=== PATIENT | male | born 1955 | race Caucasian/White ===

== ENCOUNTER 2021-09-18 18:37 | Inpatient (IN) | payer MEDICAID ==
[~2021-09-18] VITALS: Ht 172.7 cm; Wt 82.7 kg
[2021-09-18] MEDS ORDERED: METHYLPREDNISOLONE SOD SUCC 125 MG/2 ML VIAL IV STA (19:00)
[2021-09-18] MEDS ORDERED: VANCOMYCIN 1G PREMIX 200 ML IV ONE (19:00)
[2021-09-18] MEDS ORDERED: SODIUM CHLORIDE 0.9% 1000ML BAG (SEPSIS BOLUS) IV ONE (19:00)
[2021-09-18] MEDS ORDERED: IPRATROPIUM BROMIDE (0.02%) 0.5MG/2.5ML NEB HHN STA (19:00)
[2021-09-18] MEDS ORDERED: PIPERACILLIN/TAZ 3.375G PREMIX 50 ML IV ONE (19:00)
[2021-09-18] MEDS ORDERED: MAGNESIUM 2 G PREMIX 50 ML IV STA (19:00)
[2021-09-18] MEDS ORDERED: ALBUTEROL (0.083%) 2.5MG/3ML NEB HHN STA (19:00)
[2021-09-18] MEDS ORDERED: ACETAMINOPHEN 650MG SUPP PR ONE (19:45)
[2021-09-18 19:47] LABS: HEMATOCRIT. 51.9 % (42.0-52.0); HEMOGLOBIN. 17.3 g/dL (14.0-18.0); MEAN CORPUSCULAR HEMOGLOBIN 30.2 pg (28.0-32.0); MEAN CORPUSCULAR VOLUME 90.4 fL (80.0-94.0); MEAN PLATELET VOLUME 8.1 fl (7.4-10.4); PLATELET 170 x1000/uL (130-400); RED BLOOD CELL COUNT 5.75 mill/uL (4.7-6.1); RED CELL DISTRIBUTION WIDTH 13.3 % (11.6-14.6)
[2021-09-18 19:49] LABS: CHLORIDE 98 mEq/L (98-107)
[2021-09-18 19:50] LABS: INR 1.1; PROTHROMBIN TIME 11.4 sec (9.6-11.0)
[2021-09-18 20:11] LABS: PLATELET ESTIMATE NORMAL
[2021-09-19] MEDS ORDERED: TRAMADOL 50MG TABLET PO PRN
[2021-09-19] MEDS ORDERED: MAGNESIUM/ALUMINUM HYDROXIDE/SIMETHICONE 30ML UDC PO PRN
[2021-09-19] MEDS ORDERED: GUAIFENESIN 200MG/10ML SUGAR FREE UDC PO PRN
[2021-09-19] MEDS ORDERED: CEFTRIAXONE 1 G PREMIX 50 ML IV NR
[2021-09-19] MEDS ORDERED: HYDROCODONE/ACETAMINOPHEN 5/325MG TABLET PO PRN
[2021-09-19] MEDS ORDERED: IPRATROPIUM/ALBUTEROL 0.5-3(2.5)MG/3ML NEB HHN PRN
[2021-09-19] MEDS ORDERED: AZITHROMYCIN 500MG/250ML 250 ML IV NR
[2021-09-19] MEDS ORDERED: DOCUSATE SODIUM 100MG CAPSULE PO PRN
[2021-09-19] MEDS ORDERED: ONDANSETRON HCL 4MG/2ML INJ IV PRN
[2021-09-19] MEDS ORDERED: ACETAMINOPHEN 325MG TABLET PO PRN
[2021-09-19 00:27] LABS: CLARITY URINE CLEAR (CLEAR); COLOR URINE YELLOW (YELLOW); KETONES URINE TRACE (NEGATIVE); LEUKOCYTE ESTERASE URINE NEGATIVE (NEGATIVE); NITRITE URINE NEGATIVE (NEGATIVE); OCCULT BLOOD URINE NEGATIVE (NEGATIVE); PROTEIN URINE NEGATIVE (NEGATIVE); SPECIFIC GRAVITY URINE 1.018 (1.005-1.030)
[2021-09-19 00:45] LABS: BG BASE EXCESS -3.5 mmol/L (-2.0-2.0); BG CARBOXYHEMOGLOBIN 0.4 % (0.5-1.5); BG DEOXYHEMOGLOBIN 3.6 % (0.0-5.0); BG FRACTION INSPIRED OXYGEN 44; BG HCO3 ACT 19.7 mmol/L (22.0-26.0); BG OXYGEN SATURATION 96.4 % (92.0-98.5); BG PCO2 31.4 mmHg (35.0-45.0); BG PH 7.415 (7.350-7.450); BG PO2 85.9 mmHg (75.0-100.0); BG SAMPLE SITE LEFT RADIAL; BG VENT MODE NASAL CANNULA
[2021-09-19] MEDS: SODIUM CHLORIDE 0.9% 1,000 ML IV SCH ×2 (00:55→17:18)
[2021-09-19 05:21] LABS: HEMATOCRIT. 47.4 % (42.0-52.0); HEMOGLOBIN. 15.8 g/dL (14.0-18.0); MEAN CORPUSCULAR HEMOGLOBIN 30.2 pg (28.0-32.0); MEAN CORPUSCULAR VOLUME 90.8 fL (80.0-94.0); MEAN PLATELET VOLUME 7.7 fl (7.4-10.4); PLATELET 116 x1000/uL (130-400); RED BLOOD CELL COUNT 5.22 mill/uL (4.7-6.1); RED CELL DISTRIBUTION WIDTH 13.3 % (11.6-14.6)
[2021-09-19] MEDS: METHYLPREDNISOLONE SOD SUCC 125 MG/2 ML VIAL IV SCH ×4 (05:38→23:36)
[2021-09-19 05:41] LABS: CHLORIDE 104 mEq/L (98-107)
[2021-09-19 05:49] LABS: HDL CHOLESTEROL 46 mg/dL (40-59); LDL CHOLESTEROL 69 mg/dL (5-100)
[2021-09-19 06:37] VITALS: BP 132/87
[2021-09-19] MEDS ORDERED: DEXTROSE 50% WATER 50ML SYRINGE IV PRN (06:45)
[2021-09-19] MEDS ORDERED: FOLI-43 PO (06:58)
[2021-09-19] MEDS ORDERED: VALP250C3 PO (06:58)
[2021-09-19] MEDS ORDERED: LEVE500T19 PO (06:58)
[2021-09-19] MEDS ORDERED: PANT40TA51 PO (06:58)
[2021-09-19] MEDS ORDERED: RISP1TAB97 PO (06:58)
[2021-09-19] MEDS ORDERED: LORA2DIS6 IM (06:58)
[2021-09-19] MEDS ORDERED: METO25TA6 PO (06:58)
[2021-09-19] MEDS: INSULIN LISPRO 100 UNITS/ML SUBCUT SCH ×3 (06:59→12:33)
[2021-09-19] MEDS ORDERED: NALOXONE HCL 0.4MG/ML VIAL IV PRN (07:45)
[2021-09-19 08:00] VITALS: BP 99/74
[2021-09-19] MEDS: ENOXAPARIN 40MG/0.4ML SYR SUBCUT SCH (08:46)
[2021-09-19] MEDS: AMLODIPINE 10MG TABLET PO SCH (08:47)
[2021-09-19 11:25] LABS: PLATELET ESTIMATE DECREASED
[2021-09-19] MEDS ORDERED: BLOOD SUGAR DIAGNOSTIC STRIP TEST SCH (11:30)
[2021-09-19 12:00] VITALS: BP 103/76
[2021-09-19] MEDS ORDERED: MEDICATION NOT ON FORMULARY EA (Lorazepam 2 MG) IM SCH (14:45)
[2021-09-19 15:01] VITALS: BP 103/76
[2021-09-19 16:00] VITALS: BP 111/78
[2021-09-19] MEDS: VALPROIC ACID 250MG CAPSULE PO SCH (17:18)
[2021-09-19] MEDS: FOLIC ACID 1MG TABLET PO SCH (17:18)
[2021-09-19] MEDS: RISPERIDONE 1MG TABLET PO SCH (17:18)
[2021-09-19] MEDS: LEVETIRACETAM 500MG TABLET PO SCH (17:18)
[2021-09-19 20:00] VITALS: BP 126/80
[2021-09-19] MEDS: PANTOPRAZOLE 40MG DR TABLET PO SCH (20:26)
[2021-09-19] MEDS: CEFTRIAXONE 1,000 MG in DEXTROSE 5% WATER 50 ML IV SCH (23:03)
[2021-09-19] MEDS: AZITHROMYCIN 500MG in DEXTROSE 5% WATER 250ML IV SCH (23:36)
[2021-09-20] VITALS: BP 103/60
[2021-09-20 04:00] VITALS: BP 98/64
[2021-09-20] MEDS: METHYLPREDNISOLONE SOD SUCC 125 MG/2 ML VIAL IV SCH ×3 (05:45→16:15)
[2021-09-20 08:00] VITALS: BP 126/81
[2021-09-20 08:20] LABS: HEMATOCRIT 39.7 % (42.0-52.0); HEMOGLOBIN 13.6 g/dL (14.0-18.0); MEAN CORPUSCULAR HEMOGLOBIN 30.6 pg (28.0-32.0); MEAN CORPUSCULAR VOLUME 89.7 fL (80.0-94.0); PLATELET 138 x1000/uL (130-400); RED BLOOD CELL COUNT 4.43 mill/uL (4.7-6.1); RED CELL DISTRIBUTION WIDTH 13.4 % (11.6-14.6)
[2021-09-20] MEDS: VALPROIC ACID 250MG CAPSULE PO SCH ×2 (08:41→16:15)
[2021-09-20] MEDS: LEVETIRACETAM 500MG TABLET PO SCH ×3 (08:41→16:15)
[2021-09-20] MEDS: AMLODIPINE 10MG TABLET PO SCH (08:41)
[2021-09-20] MEDS: ENOXAPARIN 40MG/0.4ML SYR SUBCUT SCH (08:41)
[2021-09-20] MEDS: RISPERIDONE 1MG TABLET PO SCH ×2 (08:41→16:15)
[2021-09-20] MEDS: FOLIC ACID 1MG TABLET PO SCH (08:42)
[2021-09-20] MEDS: PANTOPRAZOLE 40MG DR TABLET PO SCH ×2 (08:42→20:39)
[2021-09-20 08:58] LABS: CHLORIDE 105 mEq/L (98-107)
[2021-09-20 11:37] VITALS: BP 106/71
[2021-09-20 15:50] VITALS: BP 113/66
[2021-09-20] MEDS: SODIUM CHLORIDE 0.9% 1,000 ML IV SCH (16:16)
[2021-09-20 20:00] VITALS: BP 123/76
[2021-09-21] VITALS: BP 123/77
[2021-09-21] MEDS: METHYLPREDNISOLONE SOD SUCC 125 MG/2 ML VIAL IV SCH ×5 (00:36→23:23)
[2021-09-21] MEDS: AZITHROMYCIN 500MG in DEXTROSE 5% WATER 250ML IV SCH (00:36)
[2021-09-21] MEDS: CEFTRIAXONE 1,000 MG in DEXTROSE 5% WATER 50 ML IV SCH ×2 (04:54→23:23)
[2021-09-21] MEDS: SODIUM CHLORIDE 0.9% 1,000 ML IV SCH ×2 (05:00→16:29)
[2021-09-21 07:54] LABS: HEMATOCRIT 40.7 % (42.0-52.0); HEMOGLOBIN 14.1 g/dL (14.0-18.0); MEAN CORPUSCULAR HEMOGLOBIN 30.8 pg (28.0-32.0); PLATELET 138 x1000/uL (130-400); RED BLOOD CELL COUNT 4.57 mill/uL (4.7-6.1); RED CELL DISTRIBUTION WIDTH 13.2 % (11.6-14.6)
[2021-09-21 08:00] VITALS: BP 128/83
[2021-09-21 08:03] LABS: CHLORIDE 103 mEq/L (98-107)
[2021-09-21] MEDS: VALPROIC ACID 250MG CAPSULE PO SCH ×2 (08:22→16:23)
[2021-09-21] MEDS: RISPERIDONE 1MG TABLET PO SCH ×2 (08:22→16:23)
[2021-09-21] MEDS: AMLODIPINE 10MG TABLET PO SCH (08:22)
[2021-09-21] MEDS: ENOXAPARIN 40MG/0.4ML SYR SUBCUT SCH (08:23)
[2021-09-21] MEDS: PANTOPRAZOLE 40MG DR TABLET PO SCH ×2 (08:23→20:21)
[2021-09-21] MEDS: LEVETIRACETAM 500MG TABLET PO SCH ×3 (08:23→16:23)
[2021-09-21] MEDS: FOLIC ACID 1MG TABLET PO SCH (08:23)
[2021-09-21 12:00] VITALS: BP 103/67
[2021-09-21 16:00] VITALS: BP 104/66
[2021-09-21] MEDS ORDERED: LORAZEPAM 1MG TABLET PO PRN (17:52)
[2021-09-21 20:00] VITALS: BP 112/65
[2021-09-22] VITALS: BP 138/86
[2021-09-22] MEDS: AZITHROMYCIN 500MG in DEXTROSE 5% WATER 250ML IV SCH (01:25)
[2021-09-22 04:00] VITALS: BP 126/76
[2021-09-22] MEDS: METHYLPREDNISOLONE SOD SUCC 125 MG/2 ML VIAL IV SCH (05:08)
[2021-09-22 07:27] LABS: HEMOGLOBIN 14.4 g/dL (14.0-18.0); MEAN CORPUSCULAR HEMOGLOBIN 30.6 pg (28.0-32.0); MEAN CORPUSCULAR VOLUME 88.9 fL (80.0-94.0); PLATELET 131 x1000/uL (130-400); RED BLOOD CELL COUNT 4.72 mill/uL (4.7-6.1)
[2021-09-22 08:00] VITALS: BP 129/86
[2021-09-22 08:29] LABS: CHLORIDE 106 mEq/L (98-107)
[2021-09-22] MEDS: RISPERIDONE 1MG TABLET PO SCH ×2 (08:44→17:08)
[2021-09-22] MEDS: PANTOPRAZOLE 40MG DR TABLET PO SCH ×2 (08:44→21:05)
[2021-09-22] MEDS: VALPROIC ACID 250MG CAPSULE PO SCH ×2 (08:44→17:08)
[2021-09-22] MEDS: LEVETIRACETAM 500MG TABLET PO SCH ×3 (08:44→17:08)
[2021-09-22] MEDS: ENOXAPARIN 40MG/0.4ML SYR SUBCUT SCH (08:45)
[2021-09-22] MEDS: SODIUM CHLORIDE 0.9% 1,000 ML IV SCH (08:45)
[2021-09-22] MEDS: AMLODIPINE 10MG TABLET PO SCH (08:45)
[2021-09-22] MEDS: FOLIC ACID 1MG TABLET PO SCH (08:45)
[2021-09-22 12:00] VITALS: BP 121/80
[2021-09-22] MEDS ORDERED: METHYLPREDNISOLONE SOD SUCC 40 MG/ML VIAL IV SCH (12:00)
[2021-09-22] MEDS: METOPROLOL TARTRATE 25MG TABLET PO SCH (13:14)
[2021-09-22 16:00] VITALS: BP 113/77
[2021-09-22 20:00] VITALS: BP 122/82
[2021-09-22] MEDS: METHYLPREDNISOLONE SOD SUCC 40 MG/ML VIAL IV SCH (21:05)
[2021-09-22] MEDS: CEFTRIAXONE 1,000 MG in DEXTROSE 5% WATER 50 ML IV SCH (23:52)
[2021-09-23] VITALS: BP 111/71
[2021-09-23] MEDS: AZITHROMYCIN 500MG in DEXTROSE 5% WATER 250ML IV SCH (01:40)
[2021-09-23 04:00] VITALS: BP 113/76
[2021-09-23 07:53] VITALS: BP 119/82
[2021-09-23] MEDS: ENOXAPARIN 40MG/0.4ML SYR SUBCUT SCH (09:18)
[2021-09-23] MEDS: METHYLPREDNISOLONE SOD SUCC 40 MG/ML VIAL IV SCH (09:19)
[2021-09-23] MEDS: METOPROLOL TARTRATE 25MG TABLET PO SCH (09:19)
[2021-09-23] MEDS: VALPROIC ACID 250MG CAPSULE PO SCH ×2 (09:19→17:01)
[2021-09-23] MEDS: AMLODIPINE 10MG TABLET PO SCH (09:19)
[2021-09-23] MEDS: RISPERIDONE 1MG TABLET PO SCH ×2 (09:20→17:01)
[2021-09-23] MEDS: LEVETIRACETAM 500MG TABLET PO SCH ×3 (09:20→17:01)
[2021-09-23] MEDS: FOLIC ACID 1MG TABLET PO SCH (09:20)
[2021-09-23] MEDS: PANTOPRAZOLE 40MG DR TABLET PO SCH ×2 (09:20→20:50)
[2021-09-23 10:10] LABS: HEMATOCRIT 46.6 % (42.0-52.0); HEMOGLOBIN 15.7 g/dL (14.0-18.0); MEAN CORPUSCULAR HEMOGLOBIN 30.5 pg (28.0-32.0); MEAN CORPUSCULAR VOLUME 90.5 fL (80.0-94.0); PLATELET 126 x1000/uL (130-400); RED BLOOD CELL COUNT 5.15 mill/uL (4.7-6.1); RED CELL DISTRIBUTION WIDTH 12.7 % (11.6-14.6)
[2021-09-23 10:25] LABS: CHLORIDE 105 mEq/L (98-107)
[2021-09-23 12:00] VITALS: BP 102/72
[2021-09-23 16:00] VITALS: BP 118/76
[2021-09-23 20:00] VITALS: BP 138/66
[2021-09-24] VITALS: BP 117/78
[2021-09-24] MEDS: CEFTRIAXONE 1,000 MG in DEXTROSE 5% WATER 50 ML IV SCH (00:56)
[2021-09-24 04:00] VITALS: BP 132/72
[2021-09-24 07:57] VITALS: BP 109/71
[2021-09-24] MEDS: PANTOPRAZOLE 40MG DR TABLET PO SCH (08:38)
[2021-09-24] MEDS: FOLIC ACID 1MG TABLET PO SCH (08:38)
[2021-09-24] MEDS: RISPERIDONE 1MG TABLET PO SCH (08:38)
[2021-09-24] MEDS: LEVETIRACETAM 500MG TABLET PO SCH (08:38)
[2021-09-24] MEDS: VALPROIC ACID 250MG CAPSULE PO SCH (08:38)
[2021-09-24] MEDS: ENOXAPARIN 40MG/0.4ML SYR SUBCUT SCH (08:39)
[2021-09-24] MEDS: METOPROLOL TARTRATE 25MG TABLET PO SCH (08:45)
[2021-09-24] MEDS: AMLODIPINE 10MG TABLET PO SCH (08:46)
[2021-09-24] MEDS ORDERED: PREDNISONE 20MG TABLET PO SCH (09:00)
[2021-09-24 10:24] VITALS: BP 109/71
== END 2021-09-24 15:28 | DRG 720 ==
LOC: ER 18:37 → MICUSO 20:33 → EDBEDREQSVC 20:38 → EDBEDREQ 20:38 → EDBEDREQTM 20:38 → 8WST 09-19 06:35
PROVIDERS: ADMIT Hospitalist; ATTEND Hospitalist
DX: A41.9 Sepsis, unspecified organism (principal); J96.01 Acute respiratory failure with hypoxia; E87.2 Acidosis; J18.9 Pneumonia, unspecified organism; N17.9 Acute kidney failure, unspecified; E87.1 Hypo-osmolality and hyponatremia; E44.1 Mild protein-calorie malnutrition; I95.9 Hypotension, unspecified; J44.0 Chronic obstructive pulmonary disease with (acute) lower respiratory infection; Z20.822 Contact with and (suspected) exposure to COVID-19; E11.9 Type 2 diabetes mellitus without complications; J44.1 Chronic obstructive pulmonary disease with (acute) exacerbation; I10 Essential (primary) hypertension; R65.20 Severe sepsis without septic shock; F20.9 Schizophrenia, unspecified; E78.00 Pure hypercholesterolemia, unspecified; K21.9 Gastro-esophageal reflux disease without esophagitis; E03.9 Hypothyroidism, unspecified; Z79.899 Other long term (current) drug therapy
CPT/HCPCS: 36415; 36600; 71045; 80048; 80053; 80061; 81003; 82375; 82805; 82962; 83036; 83605; 83880; 84145; 84484; 85025; 85027; 87426; 93005; 94640; 97110; 97116; 97161; 97162; 97165; 97166; 97530; 97535; 99291; J0456; J0696; J1650; J2543; J2920; J2930; J3370; J3475; J7030; J7060; J7512